=== PATIENT | male | born 1980 | race Caucasian/White ===

== ENCOUNTER → 2016-08-08 | Day surgery (SDC) | payer BC ==
[2016-08-01 12:32] VITALS: Ht 175.3 cm; Wt 104.5 kg
[~2016-08-08] VITALS: Ht 175.3 cm; Wt 104.5 kg
[~2016-08-08] MED LIST: CYCL5TAB PO; IBUP-1050 PO; IOPAMIDOL INJ 61% 15 ML VIAL ONE; LIDOCAINE HCL 1% MPF 5 ML VIAL ONE; OXYC-643 PO; SODIUM CHLORIDE 0.9% INJ 10 ML VIAL ONE
--- NOTE | 2016-08-08 14:12 | History & Physical Bridge - [place] ---
H&P Re-Evaluation Bridge Note: I have examined the patient, reviewed the History & Physical and in the interval since the performance of the History & Physical I have noted the following changes of clinical significance: No changes noted
[2016-08-08 14:39] VITALS: TEMP 36.8
--- NOTE | 2016-08-08 14:47 | Discharge Instructions ---
Discharge Instructions Visit Reason for Visit: Lumbosacral Radiculopathy Discharge Discharge Diagnosis / Problem: bilateral leg pain Discharge Goals Goal(s): Decrease discomfort, Improve function Activity Recommendations Activity Limitations: resume your previous activity Anesthesia . Post Anesthesia Instructions: If you have had General Anesthesia or IV Sedation: * Do not drive today. * Resume driving when surgeon permits. * Do not make important decisions or sign legal documents today. * Call surgeon for: 1. Temperature elevations greater than 101 degrees F. 2. Uncontrollable pain. 3. Excessive bleeding. 4. Persistent nausea and vomiting. 5. Medication intolerance (nausea, vomiting or rash). * For nausea and vomiting use only clear liquids such as: tea, soda, bouillon until nausea subsides, then gradually increase diet as tolerated. * If you have any concerns or questions, call your surgeon's office. If physician is unavailable and it is an emergency, call 911 or go to the nearest emergency room. . Diet Recommendations Recommended Home Diet: resume previous diet Procedures Procedures Performed: Lumbar Epidural Steroid Injection Pending Studies Studies pending at discharge: no Medical Emergencies . Who to Call and When: Medical Emergencies: If at any time you feel your situation is an emergency, please call 911 immediately. . Non-Emergent Contact Non-Emergency issues call your: Specialist . . "Provider Documentation" section prepared by Tomre Sanchez.
[2016-08-08 14:52] VITALS: BP 126/83; PULSE 104; O2SAT 95
--- NOTE | 2016-08-08 14:59 | OPERATIVE REPORT ---
DATE OF OPERATION: 08/08/2016 PREOPERATIVE DIAGNOSIS: L3-L4 disc desiccation with protrusion and bilateral L3 radiculopathies. POSTOPERATIVE DIAGNOSES: Same. PROCEDURE: Right paramedian L3-L4 intralaminar epidural steroid injection under fluoroscopic guidance. SURGEON: Dr. Tomer Sanchez. INDICATIONS: The patient is a 35-year-old white male who presents today with a 3-year history of low back pain, recently has been progressing and is becoming functionally limiting to him. He described classic radiating pattern to this pain. It does not go below the level of the knees following an L3 dermatomal distribution. Imaging correlates with problems at this level and he presents today for an epidural steroid injection to provide him with relief of his radicular pain and complaints. PHYSICAL EXAMINATION: GENERAL: Pleasant male seated comfortably in no apparent distress. MUSCULOSKELETAL EXAMINATION: Lumbar paraspinal muscles were palpated and noted be nontender. He had no issues with forward flexion or extension. He had normal lower extremity strength. Sensation intact distally at the L4, L5, S1 and L3 dermatomes. Negative seated straight leg raises. CONSENT: Verbal and written consent was obtained from the patient. Risks and benefits were reviewed. Risks include but are not limited to epidural abscess, epidural hematoma, allergic reaction and dural puncture. The patient wishes to proceed. PROCEDURE: The patient was taken back to the special procedures room of the [facility] where he was maintained in a prone position. Backside was cleansed with Betadine x3 and a dry sterile dressing was applied. Fluoroscope was used to identify the L3-L4 intralaminar space. The overlying skin was anesthetized on the right side with 4 mL of lidocaine 1% with a 25 gauge 1.5-inch needle and 4 mL of lidocaine 1%. A 22-gauge 3-1/2 inch Tuohy needle was then directed down towards the intralaminar space. It was advanced under lateral fluoroscopic guidance and loss of resistance was noted at a depth of 7 cm. Isovue 300 contrast 3/4 of mL was injected in which demonstrated epidural uptake pattern which was confirmed with both AP and lateral views. He then underwent injection after negative aspiration of 40 mg of Depo-Medrol, 4 mL of preservative free sodium chloride. Injection was well tolerated. DISPOSITION: 1. The patient is taken out into the discharge recovery area where he will be discharged home once discharge criteria have been met. 2. Follow up in the [facility] office in 2-4 weeks. I attest to the content of the Intraoperative Record and any orders documented therein. Any exceptio ns are noted below.
== END | disposition home or self-care (01) ==
LOC: X.SURG 13:03
PROVIDERS: ATTEND Physical Medicine & Rehabilitation
DX: M51.36 Other intervertebral disc degeneration, lumbar region (principal); M54.16 Radiculopathy, lumbar region

== ENCOUNTER → 2017-06-25 | Outpatient (CLI) | payer BC ==
[~2017-06-25] VITALS: Ht 177.8 cm; Wt 102.3 kg
[~2017-06-25] MED LIST changes: -IOPAMIDOL INJ 61% 15 ML VIAL ONE; -LIDOCAINE HCL 1% MPF 5 ML VIAL ONE; -SODIUM CHLORIDE 0.9% INJ 10 ML VIAL ONE
[2017-06-25 13:45] VITALS: BP 125/85; PULSE 70; Ht 177.8 cm; Wt 102.3 kg
== END | disposition home or self-care (01) ==
LOC: C.NEUR 12:15
PROVIDERS: ATTEND Internal Medicine Pulmonary Disease
DX: G47.33 Obstructive sleep apnea (adult) (pediatric) (principal)